=== PATIENT | female | born 2000 | race Hispanic/Latino ===

== ENCOUNTER 2020-11-07 16:01 | Outpatient (CLI) | payer BC | END 2020-11-07 16:02 | disposition home or self-care (01) | LOC: BICULT 16:01 | PROVIDERS: ATTEND Family Medicine | DX: N63.11 Unspecified lump in the right breast, upper outer quadrant (principal) ==

== ENCOUNTER 2022-11-03 07:54 | Outpatient (CLI) | payer BC | END 2022-11-03 07:55 | disposition home or self-care (01) | LOC: SCSMRI 07:54 | PROVIDERS: ATTEND Family Medicine | DX: G44.1 Vascular headache, not elsewhere classified (principal) | CPT/HCPCS: 70551 ==